=== PATIENT | female | born 1970 | race Caucasian/White ===

== ENCOUNTER → 2020-06-24 15:09 | Outpatient (CLI) | payer OTHER, SELFPAY ==
[2020-06-24 17:17] LABS: COVID19 -Nasal RAPID Negative (Negative)
== END ==
PROVIDERS: Visit Provider Surgery
DX: Z20.822 Contact with and (suspected) exposure to COVID-19 (principal)
CPT/HCPCS: 87635; C9803

== ENCOUNTER 2020-06-27 07:34 | Day surgery (SDC) | payer OTHER, SELFPAY ==
--- NOTE | 2020-06-27 | PATH_ITS ---
[facility] Accession Number: [id number] . 01 Material submitted: . PART A: colon - ASCENDING COLON BIOPSY PART B: colon - TRANSVERSE COLON BIOPSY AT 100CM PART C: rectum - RECTAL BIOPSY AT 10CM . 01 Clinical history: . SDC . 02 Diagnosis: A. Ascending Colon, Biopsy: Tubular adenoma in two of four fragments. . B. Transverse Colon, 100 cm, Biopsy: Sessile serrated adenoma, two fragments. . C. Rectum, 10 cm, Biopsy: Hyperplastic polyps, three fragments. MRV 07/02/2020 1218 Local . 02 Electronically signed: . Elyse Cooper MD, Pathologist NPI- [id number] . 01 Gross description: . Part A: ASCENDING COLON BIOPSY: Received in formalin are 3 fragment(s) of ellis, soft tissue measuring 0.3 x 0.3 x 0.2 cm to 0.2 x 0.2 x 0.2 cm submitted entirely in 1 cassette(s) Part B: TRANSVERSE COLON BIOPSY AT 100CM: Received in formalin are 2 fragment(s) of ellis, soft tissue measuring 0.4 x 0.2 x 0.1 cm to 0.3 x 0.3 x 0.1 cm submitted entirely in 1 cassette(s) Part C: RECTAL BIOPSY AT 10CM: Received in formalin are 3 fragment(s) of ellis, soft tissue measuring 0.4 x 0.2 x 0.2 cm to 0.3 x 0.2 x 0.1 cm submitted entirely in 1 cassette(s) /QBJ 06/29/2020 0950 Local . 02 Pathologist provided ICD-10: D12.2, D12.3 . 02 CPT . 052461, 389069, [id number] Performed at: 01 [facility] [address] [place] [address], [place], [place] [id number] MD Rhett Guzman MD Phone: [phone] Performed at: 02 [facility] [address] [place], [place] [id number] MD Elyse Cooper MD Phone: [phone]
--- NOTE | 2020-06-27 07:33 | PM.HP.1 ---
History of Present Illness History of Present Illness Date Patient Seen: 06/27/20 Time Patient Seen: 07:25 Chief complaint: SDC Narrative: The patient is a gentleman whose last colonoscopy was 8 years ago. He had an attempt at 1 several months ago but had a very poor prep and is brought back for a 2nd attempt. No family history of colon cancer. He is unaware of having any personal history of polyps. Patient History Medical History (Updated 06/27/20 @ 07:34 by Ethan Her MD) Elevated cholesterol Surgical History (Updated 06/27/20 @ 07:34 by Ethan Her MD) Status post aorto-coronary artery bypass graft Status post inguinal hernia repair Meds Home Medications and Allergies Home Medications Medication Instructions Recorded Confirmed Type sodium,potassium,mag sulfates 17.5 177 ml PO DAILY #354 ml 06/18/20 Rx gram-3.13 gram-1.6 gram oral soln atorvastatin 40 mg PO ONCE PM 06/27/20 06/27/20 History Allergies Allergy/AdvReac Type Severity Reaction Status Date / Time TAPE Allergy Unknown RASH ON Uncoded 07/21/17 13:01 BODY Review of Systems Review of Systems ROS: Yes All systems reviewed with the patient and are negative except as otherwise documented Exam Narrative Exam Narrative: Pleasant cooperative patient no apparent distress. Lungs are clear to auscultation. No rales or rhonchi. Heart regular rate and rhythm no murmur gallop. Abdomen is soft nontender without mass. No obvious hernias. Patient is alert and oriented x3. Assessment & Plan Assessment & Plan narrative: The patient for a screening colonoscopy. I have discussed the procedure with them. Risks of bleeding, perforation which would necessitate major operation, failure to find remove all lesions, the potential tattoo were all discussed. All questions were answered. They wished to proceed. Quality MIPS - Admit Advanced Care Plan / Current Medications Measures: #47 ? Advanced Care Plan Clinician documentation instruction: document at admission. [] I confirmed that the patient's Advance Care Plan is present, code status is documented, or surrogate decision maker is listed in the patient?s medical record. [SATISFIES [facility] PERFORMANCE] If Yes, Stop Here [] The patient?s Advance Care plan is not present because: (select) [MIPS PERFORMANCE EXCEPTION/EXCLUSION] [] I confirmed today that the patient does not wish or was not able to name a surrogate decision maker or provide an Advance Care Plan. [] Hospice care is currently being provided or has been provided this calendar year [] I did NOT confirm today the presence of an Advance Care Plan or surrogate decision maker documented within the patient's medical record. [DOES NOT SATISFY MIPS PERFORMANCE] #130 - Documentation of Current Medications in the Medical Record Clinician documentation instruction: use macro the first time you see a patient. [] I have utilized all available immediate resources to obtain, update, or review the patient?s current medications. [SATISFIES MIPS PERFORMANCE] If Yes, Stop Here [] The patient is not eligible for medication reconciliation; the patient is in an emergent medical situation where delaying treatment would jeopardize the patient?s health. [MIPS PERFORMANCE EXCEPTION/EXCLUSION] [] I did NOT confirm, update or review the patient's current list of medications today. [DOES NOT SATISFY MIPS PERFORMANCE] MIPS - CL Central Venous Catheter Placement Measure: #76 ? Prevention of Central Venous Catheter (CVC) ? Related Bloodstream Infection Clinician documentation instruction: use macro every time you place a central line. [] All elements of Maximal Sterile Barrier Technique, including hand hygiene, skin prep, and sterile ultrasound technique (if used) were followed. [SATISFIES MIPS PERFORMANCE] If Yes, Stop Here [] If ?No?, the medical reason all elements were NOT used for medical reason [] (ex. emergent condition). [] Maximal Sterile Barrier Technique was not followed, no reason provided [DOES NOT SATISFY MIPS PERFORMANCE] MIPS - DC Heart Failure Measures: #5 - Heart Failure (HF): Angiotensin-Converting Enzyme (DILEEP) Inhibitor or Angiotensin Receptor Cindy (ARB) Therapy for Left Ventricular Systolic Dysfunction (LVSD) and #8 - Heart Failure (HF): Beta-Cindy Therapy for Left Ventricular Systolic Dysfunction (LVSD) Clinician documentation instruction: use macro at every CHF discharge. [] The patient has current or prior documentation of left ventricular ejection fraction (LVEF) less than 40%, or moderate or severely depressed left ventricular systolic function. Answer both: [SATISFIES MIPS PERFORMANCE] [] The patient was prescribed or already taking an Angiotensin-Converting Enzyme (DILEEP) Inhibitor, or Angiotensin Receptor Cindy (ARB). [] The patient was prescribed or already taking a beta-cindy. If Yes to Both, Stop Here [] Patient not prescribed/taking: [MIPS PERFORMANCE EXCEPTION/EXCLUSION] [] DILEEP or ARB for medical/patient/system reason(s) including [] (ex. allergy, intolerance, contraindication) [] Beta-cindy for medical/patient/system reason(s) including [] (ex. allergy, intolerance, contraindication) [] Patient not prescribed/taking: [DOES NOT SATISFY MIPS PERFORMANCE] [] DILEEP or ARB, no reason given [] Beta-cindy, no reason given
--- NOTE | 2020-06-27 07:37 | PM.PREOP ---
Pre-operative Note COVID-19 COVID-19 status: Negative Result date/Date tested (Pos, Neg/Pending): 06/26/20 Interval Note History & Physical reviewed/Exam performed by Physician: Yes Changes to H&P: No ASA Class (for procedural sedation): II
[2020-06-27 08:00] VITALS: BP 123/64; PULSE 50; RESP 13; TEMP 37.4; O2SAT 97; BMI 22.1
[2020-06-27] MEDS: LACTATED RINGERS 1,000 ML 200 ML IV (08:13)
--- NOTE | 2020-06-27 08:41 | P.HP_ITS ---
History of Present Illness History of Present Illness Date Patient Seen: 06/27/20 Time Patient Seen: 08:41 Chief complaint: [facility] [place] Narrative: PATIENT IS HERE FOR HER 1ST COLONOSCOPY. SHE IS 50. NO FAMILY HISTORY OF COLON CANCER. Patient History Medical History (Updated 06/27/20 @ 08:43 by Ethan Her MD) Hypothyroidism Seizure disorder Surgical History (Updated 06/27/20 @ 08:43 by Ethan Her MD) Status post foot surgery Family & Social History Social History: household members spouse Tobacco & Substance use: Smoking Status Never smoker alcohol intake frequency a few times a week Substance Use Type does not use Meds Home Medications and Allergies Home Medications Medication Instructions Recorded Confirmed Type sodium,potassium,mag sulfates 17.5 177 ml PO DAILY #354 ml 06/18/20 Rx gram-3.13 gram-1.6 gram oral soln citalopram 20 mg PO DAILY 06/27/20 06/27/20 History lamotrigine 200 mg PO BID 06/27/20 06/27/20 History levothyroxine 100 mcg PO DAILY 06/27/20 06/27/20 History Allergies Allergy/AdvReac Type Severity Reaction Status Date / Time adhesive tape AdvReac Mild Rash Verified 06/27/20 07:58 latex AdvReac Mild Rash Verified 06/27/20 07:58 Review of Systems Review of Systems Narrative: Last seizure was about a month ago. These last about 4 or 5 seconds. ROS: Yes All systems reviewed with the patient and are negative except as otherwise documented Exam Vital Signs (past 8 hours): - 06/27/20 08:00 Temperature 99.4 F Pulse Rate 50 L Respiratory Rate 13 Blood Pressure 123/64 Pulse Oximetry 97 Oxygen Delivery Method Room Air Narrative Exam Narrative: Pleasant cooperative patient no apparent distress. Lungs are clear to auscultation. No rales or rhonchi. Heart regular rate and rhythm no murmur gallop. Abdomen is soft nontender without mass. No obvious hernias. Patient is alert and oriented x3. Assessment & Plan Assessment & Plan narrative: The patient for a screening colonoscopy. I have discussed the procedure with them. Risks of bleeding, perforation which would necessitate major operation, failure to find remove all lesions, the potential tattoo were all discussed. All questions were answered. They wished to proceed. Quality MIPS - Admit Advanced Care Plan / Current Medications Measures: #47 ? Advanced Care Plan Clinician documentation instruction: document at admission. [] I confirmed that the patient's Advance Care Plan is present, code status is documented, or surrogate decision maker is listed in the patient?s medical record. [SATISFIES MIPS PERFORMANCE] If Yes, Stop Here [] The patient?s Advance Care plan is not present because: (select) [MIPS PERFORMANCE EXCEPTION/EXCLUSION] [] I confirmed today that the patient does not wish or was not able to name a surrogate decision maker or provide an Advance Care Plan. [] Hospice care is currently being provided or has been provided this calendar year [] I did NOT confirm today the presence of an Advance Care Plan or surrogate decision maker documented within the patient's medical record. [DOES NOT SATISFY MIPS PERFORMANCE] #130 - Documentation of Current Medications in the Medical Record Clinician documentation instruction: use macro the first time you see a patient. [] I have utilized all available immediate resources to obtain, update, or revie w the patient?s current medications. [SATISFIES MIPS PERFORMANCE] If Yes, Stop Here [] The patient is not eligible for medication reconciliation; the patient is in an emergent medical situation where delaying treatment would jeopardize the patient?s health. [MIPS PERFORMANCE EXCEPTION/EXCLUSION] [] I did NOT confirm, update or review the patient's current list of medications today. [DOES NOT SATISFY MIPS PERFORMANCE] MIPS - CL Central Venous Catheter Placement Measure: #76 ? Prevention of Central Venous Catheter (CVC) ? Related Bloodstream Infection Clinician documentation instruction: use macro every time you place a central line. [] All elements of Maximal Sterile Barrier Technique, including hand hygiene, skin prep, and sterile ultrasound technique (if used) were followed. [SATISFIES MIPS PERFORMANCE] If Yes, Stop Here [] If ?No?, the medical reason all elements were NOT used for medical reason [] (ex. emergent condition). [] Maximal Sterile Barrier Technique was not followed, no reason provided [DOES NOT SATISFY MIPS PERFORMANCE] MIPS - DC Heart Failure Measures: #5 - Heart Failure (HF): Angiotensin-Converting Enzyme (DILEEP) Inhibitor or Angiotensin Receptor Cindy (ARB) Therapy for Left Ventricular Systolic Dysfunction (LVSD) and #8 - Heart Failure (HF): Beta-Cindy Therapy for Left Ventricular Systolic Dysfunction (LVSD) Clinician documentation instruction: use macro at every CHF discharge. [] The patient has current or prior documentation of left ventricular ejection fraction (LVEF) less than 40%, or moderate or severely depressed left ventricular systolic function. Answer both: [SATISFIES MIPS PERFORMANCE] [] The patient was prescribed or already taking an Angiotensin-Converting Enzyme (DILEEP) Inhibitor, or Angiotensin Receptor Cindy (ARB). [] The patient was prescribed or already taking a beta-cindy. If Yes to Both, Stop Here [] Patient not prescribed/taking: [MIPS PERFORMANCE EXCEPTION/EXCLUSION] [] DILEEP or ARB for medical/patient/system reason(s) including [] (ex. allergy, intolerance, contraindication) [] Beta-cindy for medical/patient/system reason(s) including [] (ex. allergy, intolerance, contraindication) [] Patient not prescribed/taking: [DOES NOT SATISFY MIPS PERFORMANCE] [] DILEEP or ARB, no reason given [] Beta-cindy, no reason given
[2020-06-27] MEDS: fentaNYL 250 MCG/5 ML INJ IV (08:46)
[2020-06-27] MEDS: MIDAZOLAM 5 MG/5 ML VIAL IV (08:46)
[2020-06-27 09:28] VITALS: BP 108/64; PULSE 48; RESP 18; TEMP 36.4; O2SAT 97
--- NOTE | 2020-06-27 09:31 | PM.OP.ENDO ---
Operative Date/Time/Diagnoses Date of procedure: 06/27/20 Time of procedure: 09:31 Pre-op diagnosis: Screening exam. This is her 1st colonoscopy. Post-op diagnosis: same (Multiple small polyps. Rather elongated and tortuous colon.) Procedure & Clinicians Study performed: Colonoscopy with cold biopsies Same procedure as scheduled: Yes Indications: Screening for colon cancer Surgeon: Ethan Her Procedure Notes SCOAP/Timeout: Performed Procedure in detail: The patient was placed in the left lateral decubitus position and underwent IV sedation directed by the surgeon consisting of fentanyl and Versed. Digital exam was unremarkable. The scope was inserted and advanced through the rectum into the sigmoid, descending, transverse, and ascending colon. A small polyp was identified in the transverse colon which was biopsied and removed. Stiffener was inserted and pressure applied in order to make our way into the cecum.. The cecum was reached identified by the ileocecal valve and the appendiceal opening. The scope was gradually brought out. Additional Polyps were found at the ascending colon and in the rectum. These were all quite small in under 5 mm. . The scope ultimately was retroflexed in the rectum. The appearance was normal. The scope was removed and the patient tolerated the procedure well. Prep was excellent. Scope withdrawal time: 9 minutes(12 total) Sedation minutes: 35 Findings: polyp (Multiple very small polyps. A total of 5 were removed.) Specimen(s): other (Polyps) Complications: none Post-procedure Recommendations: Colonscopy in 5 years Follow up: as needed Disposition: PACU
[2020-06-27 09:33] VITALS: BP 111/59; PULSE 47; RESP 10; O2SAT 97
[2020-06-27 09:38] VITALS: BP 106/59; PULSE 47; RESP 12; O2SAT 97
[2020-06-27 09:48] VITALS: BP 106/56; PULSE 50; RESP 16; TEMP 37.1; O2SAT 97
[2020-06-27 09:59] VITALS: BP 115/63; PULSE 54; RESP 13; TEMP 36.4; O2SAT 97
== END 2020-06-27 10:02 | disposition home or self-care (01) ==
PROVIDERS: Specialist; PCP Student in an Organized Health Care Education/Training Program; Referring Provider Student in an Organized Health Care Education/Training Program; Visit Provider Surgery
PROC: 0DJD8ZZ Inspection of Lower Intestinal Tract, Via Natural or Artificial Opening Endoscopic (ICD-10-PCS; CPT 45378; principal; 2020-06-27 08:30)
DX: D12.2 Benign neoplasm of ascending colon (principal); D12.3 Benign neoplasm of transverse colon; K62.1 Rectal polyp; E03.9 Hypothyroidism, unspecified; G40.909 Epilepsy, unspecified, not intractable, without status epilepticus; Z12.11 Encounter for screening for malignant neoplasm of colon
CPT/HCPCS: 45380; 99152; 99153; J2250; J3010